=== PATIENT | male | born 2000 ===

== ENCOUNTER 2024-05-26 16:47 | Emergency (ER) | payer SELFPAY ==
[2024-05-26 16:56] VITALS: BP 130/68; PULSE 69; RESP 15; TEMP 36.7; O2SAT 97; BMI 18.1
--- NOTE | 2024-05-26 17:09 | ED_ITS ---
HPI - Dental/Oral General: Chief complaint: Dental/Oral Stated complaint: tooth pain Time Seen by Provider: 05/26/24 16:57 Source: patient Mode of arrival: ambulatory Limitations: no limitations History of Present Illness: 23-year-old male states that he has been having left lower dental pain for the last couple weeks. He states his wisdom teeth are coming and is causing pain in his left lower mouth. He has no trismus denies any fever denies any vomiting. Denies any worse improved factors rates an 8 out of 10 Associated symptoms: Denies fever(s) Related Data Previous Rx's ?Medication ?Instructions ?Recorded cephalexin 500 mg capsule 500 mg PO TID 7 days #21 cap s 05/26/24 naproxen 500 mg tablet (Naprosyn) 500 mg PO BID PRN pa in #20 tabs 05/26/24 Allergies Allergy/AdvReac Type Severity Reaction Status Date / Time No Known Allergies Allergy Verified 05/26/24 17:00 Review of Systems Const: Denies: fever(s), chills, body aches or change in appetite ENMT: Reports: dental pain; Denies: throat pain Card: Denies: chest pain Resp: Denies: dyspnea GI: Denies: abdominal pain, nausea, vomiting or diarrhea Musc: Denies: neck pain or back pain Skin/Breast: Denies: rash Neuro: Denies: headache(s) Physical Exam Const: COMMON NORMALS: no acute distress, patient oriented x3 and healthy appearing HENMT: COMMON NORMALS: normocephalic and atraumatic HEAD & SCALP: normocephalic and atraumatic OTHER: Tenderness over left lower molar no obvious abscess or trismus Eye: COMMON NORMALS: conjunctivae normal CONJUNCTIVA: Yes conjunctivae normal Neck/C-Spine: COMMON NORMALS: full ROM and supple Chest: COMMONS NORMALS: normal inspection of the chest Resp: COMMON NORMALS: normal respiratory effort Cardio: COMMON NORMALS: regular rate RATE: regular rate Extremity: COMMON NORMALS: normal to inspection and full ROM Neuro: COMMON NORMALS: patient oriented x3, moves all extremities and no focal motor deficits Psych: COMMON NORMALS: mental status grossly normal, Normal thought process present and cooperative THOUGHT PROCESS: Normal thought process present Skin: COMMON NORMALS: no rashes or lesions noted and no wounds GENERAL SKIN EXAM: no rashes or lesions noted Procedures Nerve Block Nerve Block 1: Time out performed: Yes Local Anesthetic: bupivacaine 0.5% Amount of anesthesia used (mL): 6 Side: left Intraoral Nerve Block: inferior alveolar Procedure Successful: Yes Patient Tolerated Procedure: well Complications: none Course Vital Signs: Vital signs: Vital Signs Temperature 98.1 F 05/26/24 16:56 Pulse Rate 69 05/26/24 16:56 Respiratory Rate 15 05/26/24 16:56 Blood Pressure 130/68 05/26/24 16:56 Pulse Oximetry 97 05/26/24 16:56 Oxygen Delivery Me thod Room Air 05/26/24 16:56 MDM - Dental/Oral Medical Decision Making Patient presents for dental pain likely from his wisdom tooth no trismus or abscess he feels much improved after nerve block. He stable for discharge we will place him on Keflex he is to follow-up with dentist Medical Records I reviewed the patient's medical records. 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
== END 2024-05-26 17:46 | disposition home or self-care (01) ==
PROVIDERS: Emergency Provider Emergency Medicine
DX: K08.89 Other specified disorders of teeth and supporting structures (principal)
CPT/HCPCS: 99283